=== PATIENT | male | born 1960 | race Caucasian/White ===

== ENCOUNTER 2019-10-26 05:55 | Emergency (ER) | payer OTHER ==
[~2019-10-26] VITALS: Ht 180.3 cm; Wt 97.7 kg
[2019-10-26 06:01] VITALS: BP 122/93; Ht 180.3 cm; Wt 97.7 kg
[2019-10-26] MEDS ORDERED: HYDROCODON-ACE1 EA10 PO (06:16)
== END 2019-10-26 07:10 | disposition home or self-care (01) ==
LOC: D.ER 05:55
DX: S43.004A Unspecified dislocation of right shoulder joint, initial encounter (principal); S42.009A Fracture of unspecified part of unspecified clavicle, initial encounter for closed fracture; M25.511 Pain in right shoulder; V29.9XXA Motorcycle rider (driver) (passenger) injured in unspecified traffic accident, initial encounter; Y93.9 Activity, unspecified; Y92.9 Unspecified place or not applicable